=== PATIENT | female | born 1995 | race Caucasian/White ===

== ENCOUNTER 2025-04-03 18:30 | Emergency (ER) | payer BC, SELFPAY ==
--- OUTSIDE RECORDS SUMMARY | 2025-04-03 18:34 | XMS_ITS | Clinical Summary ---
Author Organization [facility] [address] Address [address] [place] [phone] Care Team Providers Care Livestock Rancher Name Role Phone Elizabeth Thayer NP Primary Care Provider [phone]- [phone] Allergies Active Allergy Reactions Criticality Noted Date Comments Amoxicillin Rash Medium 09/02/2005 Medications ondansetron (ZOFRAN) 4 mg tablet TAKE 1 TABLET BY MOUTH EVERY 12 HOURS NEEDED FOR NAUSEA OR VOMITING 5 Active hydroCHLOROthiazid e (HYDRODIURIL) 25 mg tabletIndications: Hypertension, essential Take 1 tablet (25 mg total) by mouth daily 90 tablet 3 5 Active drospirenone, contraceptive, (SLYND) tablet tabletIndications: Contraception Take 1 each (4 mg total) by mouth daily 84 tablet 3 5 Active Active Problems Problem Noted Date Diagnosed Date Wellness examination 01/03/2025 Assessment & Plan (01/03/2025 9:31 AM CDT): Routine health maintenance objectives discussed and orders placed for any outstanding screening studies. Physical exam performed as above. Routine annual labs obtained and will be reviewed with patient when results available. Encouraged regular physical activity--moderate activity for a total of 150 minutes per week over 3-5 days. Encouraged healthy diet with regular fresh fruits and vegetables limited in processed carbohydrates. Alcohol use - socially Nicotine use - never Depression screening - PHQ Screening Over the past 2 weeks, how often have you been bothered by any of the following problems? Little Interest or Pleasure in Doing Things: 0-Not at all Feeling Down, Depressed, or Hopeless: 0-Not at all PHQ-2 Total Score (If total score is 3 or more points, staff should administer the PHQ-9): 0 Orders: CBC with auto differential; Future Comprehensive metabolic panel; Future Lipid panel; Future Morbid obesity with BMI of 45.0-49.9, adult 12/21 Assessment & Plan (01/03/2025 9:31 AM CDT): Discussed the patient's BMI. The BMI is above average. BMI management plan is completed. BMI Follow-up includes: nutrition counseling, exercise counseling and education provided. Encouraged regular physical activity--moderate activity for a total of 150 minutes per week over 3-5 days. Encouraged healthy diet with regular fresh fruits and vegetables limited in processed carbohydrates. Orders: Lipid panel; Future Vitamin D 25 hydroxy; Future Hemoglobin A1c; Future Hypertension, essential 01/03/2025 Assessment & Plan (01/31/2025 9:54 AM CDT): Orders: hydroCHLOROthiazide (HYDRODIURIL) 25 mg tablet; Take 1 tablet (25 mg total) by mouth daily Assessment & Plan (01/03/2025 9:31 AM CDT): Orders: Albumin Creatinine Ratio, Urine; Future hydroCHLOROthiazide (HYDRODIURIL) 25 mg tablet; Take 1 tablet (25 mg total) by mouth daily Encounters Date Type Department Care Team Description 03/07/2025 Results Follow-Up [address] [address] Jethro Pressley NP Pap and HPV, reflex to HPV Genotypes 03/04/2025 8:00 AM CDT Office Visit [facility] at [address] [phone] Jethro Pressley NP Well woman exam (Primary Dx); Screening for STD (sexually transmitted disease); Oral contraceptive pill surveillance 02/03/2025 Results Follow-Up [facility] at [address] [phone] Elizabeth Thayer NP Ferritin, Iron profile w/ IBC 01/31/2025 9:30 AM CDT Office Visit [facility] at [address] [phone] Elizabeth Thayer, SANDY Morbid obesity with BMI of 45.0-49.9, adult (HCC) (Primary Dx); Hypertension, essential 01/29/2025 1:35 PM CDT Lab [address] [address] Microcytosis 01/04/2025 Results Follow-Up [facility] at [address] [phone] Elizabeth Thayer, SANDY Lipid panel, Comprehensive metabolic panel, CBC with auto differential, Additional followed-up results: 7 01/03/2025 9:35 AM CDT Lab [address] [address] Morbid obesity with BMI of 45.0-49.9, adult (HCC); Wellness examination; Need for hepatitis C screening test; Hypertension, essential; Thyroid disorder screening 01/03/2025 9:00 AM CDT Office Visit [facility] at [address] [phone] Elizabeth Thayer, SANDY Morbid obesity with BMI of 45.0-49.9, adult (HCC) (Primary Dx); Wellness examination; Need for hepatitis C screening test; Thyroid disorder screening; Hypertension, essential; Cervical cancer screening from Last 3 Months Immunizations Immunization Administration Dates Next Due DTaP, Unspecified 01/28/1999, 6,1994,06/08,1994 H1N1 Inj 04/29/2009 HPV9 04/16/2019 Hep A, Adult 07/12/2023,01/07/2023 Hep B, Unspecified 1994,1994, 994 HiB 05/26/1995, 5,1994,03/30 Influenza, Quadrivalent, Spl it, Intramuscular 03/07/2023 MMR 01/28/1999,05/26/1995 OPV 01/28/1999, 6,1994,03/30 PPD TEST 01/03/2023 Td, Unspecified 03/17/2009 Tdap 01/03/2023 Varicella 01/07/2023,10/23/1996 Medical History Medical History Date Comments Hypertension Family History Medical History Relation Name Comments Heart attack Maternal Grandfather Hypertension Mother Eileen Thyroid disease Mother Eileen Breast cancer Neg Hx Colon cancer Neg Hx Ovarian cancer Neg Hx Uterine cancer Neg Hx Relation Name Status Comments Father Alive Maternal Grandfather Alive Mother Eileen Alive Social History Tobacco Use Types Packs/Day Years Used Date Smoking Tobacco: Never Passive Smoke Exposure: Never Smokeless Tobacco: Never Alcohol Use Standard Drinks/Week Comments Yes 0 (1 standard drink = 0.6 oz pur e alcohol) PHQ-2 Answer Date Recorded PHQ-2 Total Score (If total score is 3 or more points, staff should administer the PHQ-9) 0 03/04/2025 AUDIT-C Answer Date Recorded Q1: How often do you have a drink containing alc ohol? Monthly or less 01/03/2025 Q2: How many drinks containi ng alcohol do you have on a typical day when you are drinking? 1 or 2 01/03/2025 Q3: How often do you have si x or more drinks on one occasion? Never 01/03/2025 Comments No Sex and Gender Information Value Date Recorded Sex Assigned at Not on file Legal Sex Female 9:37 PM CDT Gender Identity Not on file Sexual Orientation Not on file Obstetrics History Para Term AB IAB SAB Ectopic Multiple Livin g Live Births 0 0 0 0 0 0 0 0 0 0 0 Last Filed Vital Signs Vital Sign Reading Time Taken Comments Blood Pressure 122/86 03/04/2025 8:10 AM CDT Pulse 78 01/31/2025 9:28 AM CDT Temperature 36.4 C (97.5 F) 01/31/2025 9:28 AM CDT Respiratory Rate 16 01/31/2025 9:28 AM CDT Oxygen Saturation 98% 01/31/2025 9:28 AM CDT Inhaled Oxygen Concentration - - Weight 127.5 kg (281 lb) 03/04/2025 8:10 AM CDT Height 165.1 cm (5' 5) 03/04/2025 8:10 AM CDT Body Mass Index 46.76 03/04/2025 8:10 AM CDT Plan of Treatment Health Maintenance Due Date Last Done Comments HPV Vaccines (2 - 3-dose series) 05/14/2019 04/16/2019 Influenza Vaccine (#1) 2025 03/07/2023 Postp oned from 01/21/2025 (Patient declined, but will receive in the future) Covid-19 Vaccine ( season) 2026 07/09/2020, 06/18/2020 Postponed from 01/21/2025 (Patient declined, but will receive in the future) Cervical Cancer Screening 03/04/2026 03/04/2025 Depression Screening 03/04/2026 03/04/2025, 01/04/20 25 Regular Well Visit/Exam 18-64 03/04/2026 03/04/2025, 01/03/2025 DTaP/Tdap/Td Vaccine (7 - Td or Tdap) 01/03/2033 01/03/2023, 03/17/2009, 01/28/1999, Additional history exists Hepatitis B Screening Discontinued 1994 , 1994, 1994 Varicella Vaccines Discontinued 01/07/2023, 10/23/1996 Hepatitis C Screening Completed 01/03/2025 Pneumococcal vaccine <65 Aged Out No longer eligible based on patient's age to complete this topic Procedures Procedure Name Priority Date/Time Associated Diagnosis Comments PAP AND HPV, REFLEX TO HPV GENOTYPES Routine 03/04/2025 8:36 AM CDT Well woman exam N. GONORRHOEAE/C. TRACHOMATIS AMPLIFICATION Routine 03/04/2025 8:36 AM CDT IRON PROFILE W/ IBC Routine 01/29/2025 1 :48 PM CDT Microcytosis FERRITIN Routine 01/29/2025 1:48 PM CDT Microcytosis ALBUMIN CREATININE RATIO, URINE Routine 01/03/2025 12:28 PM CDT Hypertension, essential EGFR Routine 01/03/2025 9:51 AM CDT Wellness examination DIFFERENTIAL AUTO Routine 01/03/2025 9:5 1 AM CDT Wellness examination VITAMIN D 25 HYDROXY Routine 01/03/2025 9:51 AM CDT Morbid obesity with BMI of 45.0-49.9, adult (HCC) THYROID FUNCTION CASCADE Routine 01/03/2025 9:51 AM CDT Thyroid disorder screening HEMOGLOBIN A1C Routine 01/03/2025 9:51 AM CDT Morbid obesity with BMI of 45.0-49.9, adult (HCC) CBC WITH AUTO DIFFERENTIAL Routine 01/03/2025 9:51 AM CDT Wellness examination COMPREHENSIVE METABOLIC PANEL Routine 01/03/2025 9:51 AM CDT Wellness examination LIPID PANEL Routine 01/03/2025 9:51 AM CDT Morbid obesity with BMI of 45.0-49.9, adult (HCC) Wellness examination HEPATITIS C ANTIBODY Routine 01/03/2025 9:51 AM CDT Need for hepatitis C screening test from Last 3 Months Results * Pap and HPV, reflex to HPV Genotypes (03/04/2025 8:36 AM CDT) CLINICAL INFORMATION: [facility] Comment:WELL WOMAN LMP [facility] Comment:02/20/25 Previous Pap [facility] Comment:NONE GIVEN Prev. Bx [facility] Comment:NONE GIVEN SOURCE: [facility] Comment:Cervix, Endocervix Pap, specimen adequacy [facility] Comment: Satisfactory for evaluation. Endocervical/transformation zone component present. HPV interp [facility] Comment: Cytology Results: Negative for intraepithelial lesion or malignancy. COMMENTS [facility] Comment: This Pap test has been evaluated with the ThinPrep(R) Imaging System. Archival Records Clerk [facility] Comment: IVELISSE LOZA(ASCP) CT Screening Location: [place] [address] [address] [place] [address] CLIA: [id number] Slide preparation performed at: [facility], [facility] [place], [address] CLIA: [id number] Comment [facility] Comment: EXPLANATORY NOTE: The Pap is a screening test for cervical cancer. It is not a diagnostic test and is subject to false negative and false positive results. It is most reliable when a satisfactory sample, regularly obtained, is submitted with relevant clinical findings and history, and when the Pap result is evaluated along with historic and current clinical information. Human papillomavirus DNA, High Risk E6/E7 Not Detected NOT DETECTED [facility] Comment: Not Detected High Risk HPV types (16,18,31,33,35,39,45,51,52, 56,58,59,66,68) were not detected. Other HPV types which cause anogenital lesions may be present. The significance of the other types of HPV in malignant processes has not been established. Methodology: Real Time PCR Thin prep-Endocervica l 03/04/2025 8:36 AM CDT 03/05/2025 6:07 PM CDT Jethro Pressley WELDER TECH LAB CYTOLOGY ORDERABLES Final Result [facility] [address] [address] [place] [phone] [facility] [address] [place] [address] * N. gonorrhoeae/C. trachomatis Amplification (03/04/2025 8:36 AM CDT) C. trachomatis RNA NOT DETECTED NOT DETECTED [facility] N. gonorrhoeae RNA NOT DETECTED NOT DETECTED [facility] Comment [facility] Comment: The analytical performance characteristics of this assay, when used to test SurePath(TM) specimens have been determined by [facility]. The modifications have not been cleared or approved by the FDA. This assay has been validated pursuant to the CLIA regulations and is used for clinical purposes. For additional information, please refer to https://education.[employer]rog[employer] Bop/faq/WXD016 (This link is being provided for information/ educational purposes only.) 03/04/2025 8:36 AM CDT 03/05/2025 6:07 PM CDT Jethro Pressley WELDER TECH LAB MICROBIOLOGY - GENE RAL ORDERABLES Final Result Performing Organization Address City/[facility]/ZIP Co de Phone Number [employer] [phone] * (ABNORMAL) Iron profile w/ IBC (01/29/2025 1:48 PM CDT) Iron 44 35 - 145 mcg/dL TIBC 290 250 - 400 mcg/dL [facility] Transferrin saturation 15(L) 20 - 50 % [facility] Blood 01/29/2025 1:48 PM CDT 01/29/2025 6:24 PM CDT Elizabeth Thayer WELDER TECH LAB BLOOD ORDERABLES Final Result Performing Organization Address City/[facility]/ZIP Co de Phone Number [facility] [address] [facility] Department [place] [address] * Ferritin (01/29/2025 1:48 PM CDT) Ferritin 135 13 - 150 ng/mL Blood 01/29/2025 1:48 PM CDT 01/29/2025 6:24 PM CDT Elizabeth Thayer WELDER TECH LAB BLOOD ORDERABLES Final Result Performing Organization Address City/[facility]/ZIP Co de Phone Number [facility] [address] [facility] [place] [address] * Albumin Creatinine Ratio, Urine (01/03/2025 12:28 PM CDT) Albumin Ur 15.7 mg/L Comment: Interpretive Data No reference range established. Current interpretive data was last revised 2018. Creatinine Ur 84.0 mg/dL [facility] Comment: Interpretive Data No reference range established. Current interpretive data was last revised 2018. Albumin Creatinine Ratio, Ur 19 1 - 29 mg/g [facility] Urine 01/03/2025 12:2 8 PM CDT 01/03/2025 2:35 PM CDT us Elizabeth Thayer NP LAB URINE ORDERABLES Final Result [facility] [place] [address] * eGFR (01/03/2025 9:51 AM CDT) eGFR >90 >=60 mL/min/1. 73 m2 Comment: Interpretive Data Reference Interval Normal >/= 90 mL/min/1.73m2 Mildly decreased* 60 - 89 mL/min/1.73m2 Mildly to moderately decreased 45 - 59 mL/min/1.73m2 Moderately to severely decreased 30 - 44 mL/min/1.73m2 Severely decreased 15 - 29 mL/min/1.73m2 Kidney Failure < 15 mL/min/1.73m2 *Relative to young adult level Estimated glomerular filtration rate is determined by the 2020 CKD-EPI equation recommended by the National Kidney Foundation (A Unifying Approach to GFR Estimation: Recommendations of the NKF-ASK Task Force on Reassessing the Inclusion of Race in Diagnosing Kidney Disease, JASN 2020). The CKD-EPI equation should not be used for patients with unstable renal function and has not been validated in children and those over 70. Current interpretive data was last reviewed 2021. Blood 01/03/2025 9:51 AM CDT 01/03/2025 11:19 AM CDT us Elizabeth Thayer WELDER TECH LAB BLOOD ORDERABLES Final Result [facility] [address] [facility] [place] [address] * Differential, auto (01/03/2025 9:51 AM CDT) Neutrophil abs 6.44 1.50 - 6.50 K/cumm Imm gran abs 0.02 0.00 - 0.10 K/cumm [facility] Lymphocyte abs 2.81 0.80 - 3.30 K/cumm [facility] Monocyte abs 0.74 0.20 - 0.80 K/cumm [facility] Eosinophil abs 0.01 0.00 - 0.50 K/cumm [facility] Basophil abs 0.03 0.00 - 0.10 K/cumm [facility] Neutrophil pct 64.0 % [facility] Comment: Interpretive Data Percent cell count reference ranges are not reported, since discordance with absolute values may lead to misinterpretation of CBC data. Current Interpretive Data was last revised on 2017. Imm gran pct 0.2 % [facility] Comment: Interpretive Data Percent cell count reference ranges are not reported, since discordance with absolute values may lead to misinterpretation of CBC data. Current Interpretive Data was last revised on 2017. Lymphocyte pct 28.0 % [facility] Comment: Interpretive Data Percent cell count reference ranges are not reported, since discordance with absolute values may lead to misinterpretation of CBC data. Current Interpretive Data was last revised on 2017. Monocyte pct 7.4 % [facility] Comment: Interpretive Data Percent cell count reference ranges are not reported, since discordance with absolute values may lead to misinterpretation of CBC data. Current Interpretive Data was last revised on 2017. Eosinophil pct 0.1 % [facility] Comment: Interpretive Data Percent cell count reference ranges are not reported, since discordance with absolute values may lead to misinterpretation of CBC data. Current Interpretive Data was last revised on 2017. Basophil pct 0.3 % [facility] Comment: Interpretive Data Percent cell count reference ranges are not reported, since discordance with absolute values may lead to misinterpretation of CBC data. Current Interpretive Data was last revised on 2017. Blood 01/03/2025 9:51 AM CDT 01/03/2025 11:19 AM CDT Elizabeth Thayer WELDER TECH LAB BLOOD ORDERABLES Final Result Performing Organization Address City/[facility] Co de Phone Number [address] [address] * Thyroid Function [place] (01/03/2025 9:51 AM CDT) [facility] TSH 3.74 0.30 - 4.20 mcIUnit/mL Blood 01/03/2025 9:51 AM CDT 01/03/2025 11:19 AM CDT Elizabeth Thayer WELDER TECH LAB BLOOD ORDERABLES Final Result Performing Organization Address [facility] de Phone Number [address] [address] * (ABNORMAL) CBC with auto differential (01/03/2025 9:51 AM CDT) [facility] WBC 10.05(H) 3.80 - 9.90 K/cumm Hgb 12.8 11.9 - 15.5 g/dL [facility] Hct 40.5 35.6 - 45.5 % [facility] Plt 314 150 - 400 K/cumm [facility] MPV 10.1 9.1 - 12.3 fL [facility] RBC 5.22(H) 3.90 - 5.20 M/cumm [facility] MCV 77.6(L) 81.3 - 96.4 fL [facility] MCH 24.5(L) 27.1 - 33.3 pg [facility] MCHC 31.6(L) 32.3 - 35.7 g/dL [facility] RDW CV 13.7 11.1 - 14.9 % [facility] RDW SD 38.3 35.7 - 48.1 fL [facility] NRBC abs 0.00 0.00 - 0.01 K/cumm [facility] Blood 01/03/2025 9:51 AM CDT 01/03/2025 11:19 AM CDT lEizabeth Thayer NP LAB BLOOD ORDERABLES Final Result Performing Organization Address City/[facility]/ZIP Co de Phone Number [facility] [address] [place] [address] * Hepatitis C antibody Blood (01/03/2025 9:51 AM CDT) Pathologist [facility] Hep C Ab Nonreactive Nonreactive Comment: Antibodies to HCV not detected. Does NOT exclude the possibility of recent exposure to HCV. Current interpretive data was last revised on 22 Interpretive Data Nonreactive: Antibodies to HCV not detected. Does NOT exclude the possibility of recent exposure to HCV. Equivocal: Equivocal for HCV antibodies. Supplemental molecular testing will be automatically performed to determine infection status in accordance with current CDC screening recommendations. Reactive: Positive for HCV antibodies. This may represent current or past HCV infection. Supplemental molecular testing will be automatically performed to determine current infection status in accordance with current CDC screening recommendations. Interpretive data was last revised on 2019. Blood 01/03/2025 9:51 AM CDT 01/03/2025 11:19 AM CDT Elizabeth Thayer NP LAB MICROBIOLOGY - GENERAL ORDERABLES Final Result Performing Organization Address [facility] Co de Phone Number [address] [place] [address] * Vitamin D 25 hydroxy (01/03/2025 9:51 AM CDT) [facility] Vitamin D 25-OH 43.0 30.0 - 80.0 ng/mL Blood 01/03/2025 9:51 AM CDT 01/03/2025 11:19 AM CDT Elizabeth Thayer NP LAB BLOOD ORDERABLES Final Result Performing Organization Address City/[facility] Co de Phone Number [facility]MA[address] [place] [address] * Hemoglobin A1c (01/03/2025 9:51 AM CDT) Hgb A1C 5.2 4.0 - 5.6 % Estimated Average Glucose 103 mg/dL [facility] Comment: The ADA recommends reporting an estimated Average Glucose (eAG) with all Hemoglobin A1c results using the equation derived from a study of 507 normal and diabetic adults. Minority populations were underrepresented and children were not included. (Diabetes Care 31:5804-4694, 2008). The eAG is not equivalent to a fasting glucose. Blood 01/03/2025 9:51 AM CDT 01/03/2025 11:19 AM CDT Elizabeth Thayer WELDER TECH LAB BLOOD ORDERABLES Final Result [facility] [address] [facility] [place] [address] * (ABNORMAL) Lipid panel (01/03/2025 9:51 AM CDT) Cholesterol 175 30 - 199 mg/dL Comment: Interpretive Data Ages < or = 19 years Acceptable: <170 mg/dL Borderline high: 170-199 mg/dL High: >or= 200 mg/dL Ages > or = 20 years Desirable: <200 mg/dL Borderline high: 200-239 mg/dL High: >or= 240 mg/dL Literature References: 1. Expert Panel on Integrated Guidelines for Cardiovascular Health and Risk Reduction in Children and Adolescents. Pediatrics 2011;128:S213 2. NCEP Expert Panel. Circulation 2004;110:227 Current Interpretive Data was last revised on 2018. Triglycerides 100 <=149 mg/dL [facility] Comment: Interpretive Data Ages < or = 9 years Acceptable: <75 mg/dL Borderline high: 75-99 mg/dL High: >or= 100 mg/dL Ages 10 to 20 years Acceptable: <90 mg/dL Borderline high: 90-129 mg/dL High: >or= 130 mg/dL Ages > or = 20 years Desirable: <150 mg/dL Borderline high: 150-199 mg/dL High: 200-499 mg/dL Very high: >or= 499 mg/dL Literature References: 1. Expert Panel on Integrated Guidelines for Cardiovascular Health and Risk Reduction in Children and Adolescents. Pediatrics 2011;128:S213 2. NCEP Expert Panel. Circulation 2004;110:227 Current Interpretive Data was last revised on 2018. HDL 27(L) >=40 mg/dL [facility] Comment: Interpretive Data Ages < or = 19 years Acceptable: >45 mg/dL Borderline low: 40-45 mg/dL Low: <40 mg/dL Ages > or = 20 years Desirable: >or= 60 mg/dL Low: <40 mg/dL Literature References: 1. Expert Panel on Integrated Guidelines for Cardiovascular Health and Risk Reduction in Children and Adolescents. Pediatrics 2011;128:S213 2. NCEP Expert Panel. Circulation 2004;110:227 Current Interpretive Data was last revised on 2018. LDL, calculated 129 <=129 mg/dL [facility] Comment: Interpretive Data Ages < or = 19 years Acceptable: <110 mg/dL Borderline high: 110-129 mg/dL High: >or= 130 mg/dL Ages > or = 20 years Optimal: <100 mg/dL Near optimal: 100-129 mg/dL Borderline high: 130-159 mg/dL High: >160 mg/dL Calculated using the Jonnathan LDL-C estimating equation. This equation was implemented on 2024. Prior to this date LDL-C was estimated using the Friedewald equation. Literature References: 1. Expert Panel on Integrated Guidelines for Cardiovascular Health and Risk Reduction in Children and Adolescents. Pediatrics 2011;128:S213 2. NCEP Expert Panel. Circulation 2004;110:227 3. Jonnathan Roberto al. ALISON Cardiol. 2020 September 20;5(5):540-548. doi: 10.1001/jamacardio.2020.0013 Current Interpretive Data was last revised on 2024. Non-HDL Cholesterol 148 mg/dL [facility] Comment: Interpretive Data Ages < or = 19 years Acceptable: <120 mg/dL Borderline high: 120-144 mg/dL High: >145 mg/dL Ages > or = 20 years When triglycerides are >200 mg/dL, Non-HDL cholesterol is a secondary target of therapy with treatment goals that are 30 mg/dL greater than the LDL cholesterol target. Literature References: 1. Expert Panel on Integrated Guidelines for Cardiovascular Health and Risk Reduction in Children and Adolescents. Pediatrics 2011;128:S213 2. NCEP Expert Panel. Circulation 2004;110:227 Current Interpretive Data was last revised on 2018. Chol/HDL ratio 6 [facility] Blood 01/03/2025 9:51 AM CDT 01/03/2025 11:19 AM CDT Narrative [facility] - 01/03/2025 11:57 AM CDT Has the patient been fasting for 8 hours or more?->Yes Elizabeth Thayer NP LAB BLOOD ORDERABLES Final Result [facility] [address] [facility] [place] [address] * Comprehensive metabolic panel (01/03/2025 9:51 AM CDT) Sodium 139 135 - 145 mmol/L Potassium, pl 3.9 3.3 - 4.9 mmol/L [facility] [facility] Chloride 103 97 - 110 mmol/L [facility] CO2 25 22 - 32 mmol/L [facility] Anion gap 11 2 - 15 mmol/L [facility] BUN 14 6 - 25 mg/dL [facility] Creatinine 0.87 0.60 - 1.10 mg/dL [facility] Glucose 100 70 - 199 mg/dL [facility] Comment: Interpretive Data Fasting glucose >/= 126 mg/dl is diagnostic for diabetes. Fasting is defined as no caloric intake for at least 8 hours. Fasting glucose between 100 mg/dl to 125 mg/dl is diagnostic of prediabetes. In a patient with classic symptoms of hyperglycemia or hyperglycemic crisis, a random glucose >/= 200 mg/dl is diagnostic for diabetes. In the absence of unequivocal hyperglycemia, results should be confirmed by repeat testing. The classification and Diagnosis of Diabetes Diabetes Care 2021; 46: S19-S40. Current interpretive data was last revised 2022. Calcium 9.7 8.5 - 10.3 mg/dL [facility] Bilirubin, total 0.6 0.1 - 1.2 mg/dL [facility] Protein, pl 7.5 6.5 - 8.5 g/dL [facility] Albumin 4.4 3.5 - 5.0 g/dL [facility] Alk phos 83 40 - 130 Units/L [facility] 26 7 - 45 Units/L [facility] AST 26 10 - 45 Units/L [facility] Blood 01/03/2025 9:51 AM CDT 01/03/2025 11:19 AM CDT Elizabeth Thayer NP LAB BLOOD ORDERABLES Final Result [facility]OSS [address] [facility] Department [place] [address] from Last 3 Months Insurance [place] Care Teams Livestock Rancher Relationship Specialty Start Date End Date Elizabeth Thayer NP [address] [address] PCP - General Internal Medicine 01/03/25
--- OUTSIDE RECORDS SUMMARY | 2025-04-03 18:34 | XMS_ITS | Encounter Summary ---
Author Organization [facility] Healthcare Address [address] [place] [address] Care Team Providers Care Computer Applications Developer Name Role Phone Elizabeth Thayer NP Primary Care Provider +1- [phone] Encounter Details Date Type Department Care Team (Late st Contact Info) Description 03/07/2025 Results Follow-Up [facility] [address] [place] [address] [address] [place] [address] Jethro Pressley NP [address] [facility] [address] [place] [address] Pap and HPV, reflex to HPV Genotypes Social History Tobacco Use Types Packs/Day Years [...] on file Sexual Orientation Not on file documented as of this encounter Plan of Treatment Not on file documented as of this encounter Visit Diagnoses Not on filedocumented in this encounter Care Teams Computer Applications Developer Relationship Specialty Start Date End Date Elizabeth Thayer NP [address] [facility] [address] [place] [address] PCP - General Internal Medicine 01/03/25 documented as of this encounter
--- OUTSIDE RECORDS SUMMARY | 2025-04-03 18:34 | XMS_ITS | Encounter Summary ---
Author Organization [facility] Healthcare Address [address] [place] [address] Care Team Providers Care Client Experience Consultant Name Role Phone Elizabeth Thayer NP Primary Care Provider +1- [phone] Encounter Details Date Type Department Care Team (Late st Contact Info) Description 02/03/2025 Results Follow-Up [facility] Primary Care at [address] [address] Elizabeth Thayer NP [address] [place] [address] [address] [place] [address] Ferritin, Iron profile w/ IBC Social History Tobacco Use Types Packs/Day Years Used Date Smoking Tobacco: Never Passive Smoke Exposure: Never Smokeless Tobacco: Never Alcohol Use Standard Drinks/Week Comments Yes 0 (1 standard drink = 0.6 oz pur e alcohol) PHQ-2 Answer Date Recorded PHQ-2 Total Score (If total score is 3 or more points, staff should administer the PHQ-9) 0 01/03/2025 AUDIT-C Answer Date Recorded Q1: How often [...] on filedocumented in this encounter Care Teams Client Experience Consultant Relationship Specialty Start Date End Date Elizabeth Thayer NP [address] [facility] [address] [place] [address] PCP - General Internal Medicine 01/03/25 documented as of this encounter
[2025-04-03 18:41] VITALS: BP 138/77; PULSE 100; RESP 18; TEMP 37.4; O2SAT 100
--- NOTE | 2025-04-03 19:17 | ED.SKABFB ---
HPI - Skin/Abscess/Foreign Bdy General Chief complaint: Skin/Abscess/Foreign Body Stated complaint: Rash Time Seen by Provider: 04/03/25 19:00 Source: patient and RN notes reviewed Mode of arrival: ambulatory Limitations: no limitations History of Present Illness HPI narrative: 30-year-old female presents to the [facility] complaining of itchiness for the last 2 weeks. Patient is any rash, fevers, body aches, chills, breathing problems, wheezing, or any symptoms. Patient reports a history of hypertension. She says she only takes hydrochlorothiazide for it. Patient denies any changes in medications, no new detergents, soaps, or any changes in her lifestyle. Patient denies any drug use. Patient has been using Zyrtec and Benadryl help with symptoms with some relief, she has also been using her mother's clobetasol cream without relief. Been trying Aquaphor as well any relief of the itchiness. Related Data Home Medications ?Medication ?Instructions ?Recorded ?Confirmed ?Last Taken ?Type drospirenone (contraceptive) 4 mg 04/03/25 Unknown History (28) tablet (Slynd) hydrochlorothiazide 25 mg tablet mg 04/03/25 Unknown History Allergies Allergy/AdvReac Type Severity Reaction Status Date / Time amoxicillin Allergy Mild Rash Verified 04/03/25 18:52 Review of Systems Review of Systems: CONSTITUTIONAL: Denies fever, chills, or sweats. EYES: Denies visual changes, redness, or discharge. ENT: Denies rhinorrhea, congestion, sore throat, difficulty clearing secretions, or otalgia. CARDIOVASCULAR: Denies chest pain, palpitations, or edema. RESPIRATORY: Denies cough, wheezing cough or dyspnea. GASTROINTESTINAL: Denies abdominal pain, nausea, vomiting, or diarrhea. GENITOURINARY: Denies dysuria or hematuria. SKIN: Denies rash. Positive for itching. MUSCULOSKELETAL: Denies back pain, joint pain, or myalgia. NEUROLOGIC: Denies headache, numbness, or weakness. PSYCHIATRIC: Denies anxiety or depression. All other systems reviewed are negative, except as documented in HPI. PMFSH Comments At the time of my signature, I reviewed and agree with the nursing past medical, surgical, social, and family history. There is no relevant family history pertinent to the patient complaint. Exam Narrative: GENERAL: This is a well-nourished, well-developed adult, in no apparent distress. They are non ill-appearing, nontoxic appearing. HEAD: normocephalic, atraumatic. EYES: Sclera clear/white. Conjunctiva normal. Vision is grossly intact. Extraocular movements intact EARS: External ears normal, Hearing grossly intact. NOSE: External nose normal THROAT: Mucous membranes moist, NECK: Neck supple, non-tender without lymphadenopathy, masses or thyromegaly. CARDIOVASCULAR: Regular rate and rhythm RESPIRATORY: Respiratory rate normal, respiratory effort nonlabored, no respiratory distress SKIN: warm, Dry, intact with no suspicious lesions or rash, good texture and turgor. Dermatographia to left upper arm and chest from scratching. NEURO: awake, alert, and oriented to person, place and time. There were no obvious focal neurologic abnormalities. EXTREMITIES: No joint tenderness, effusion, or edema noted. BACK: Nontender without deformity. No CVA tenderness. Course Course Emergency Course: Portions of this record may have been created with voice recognition software Level of Care: Express Care Visit Vital Signs Vital signs: Vital Signs Temperature 99.4 F 04/03/25 18:41 Pulse Rate 100 04/03/25 18:41 Respiratory Rate 18 04/03/25 18:41 Blood Pressure 138/77 04/03/25 18:41 Pulse Oximetry 100 04/03/25 18:41 Oxygen Delivery Room Air 04/03/25 18:41 Temperature 99.4 F 04/03/25 18:41 Pulse Rate 100 04/03/25 18:41 Respiratory Rate 18 04/03/25 18:41 Blood Pressure 138/77 04/03/25 18:41 Pulse Oximetry 100 04/03/25 18:41 Oxygen Delivery Room Air 04/03/25 18:41 Reviewed MDM - Skin/Abscess/Foreign Bdy MDM Narrative Medical decision making narrative: Unknown cause for pruitius. Well Try short course of prednisone. Discussed supportive care and skin care. Discussed physical exam findings. Advised supportive measures and signs/symptoms to go to the ER. Pt is appropriate for outpt treatment and f/u. Differential Diagnosis Differential diagnosis: Likely urticaria, allergic reaction to drug, eczema, contact dermatitis and other (xerosis, pruritus) Critical Care Time Critical Care Time Critical Care Time: No Discharge Plan Discharge Clinical Impression: Pruritus Patient Disposition: Home Condition: Stable Instructions: Itchy Skin (ED) Additional Instructions: Take the prednisone as directed. Traditional soaps skin damage the natural skin moisture barrier making your vp marketing services and skin can cause more itchiness. Try using Syndet ( synthetic detergent) which are much milder for the skin. Common brands are Dove, cetaphil, Aveeno. uses daily skin moisturizer such as Eucerin then apply a Vaseline or Aquaphor after a shower to help moisturize the skin. avoid excessive or aggressive skin washing, do not showering hot water are, lukewarm water as better for skin, use humidifier to help increase the humidity side the home especially when using the here. Continue taking your Zyrtec to help with itchiness as well. Follow-up PCP in 3-5 days For re-evaluation. Patient Language: Frisian Prescriptions: New prednisone 20 mg tablet 40 mg PO DAILY 5 Days Qty: 10 0RF No Action hydrochlorothiazide 25 mg tablet Slynd 4 mg (28) tablet Follow-up/Referrals: Jeovany,Elizabeth Azevedo APRN [Primary Care Provider, Unknown] Time of Disposition: 19:16
== END 2025-04-03 19:19 | disposition home or self-care (01) ==
PROVIDERS: PCP Nurse Practitioner
DX: L29.9 Pruritus, unspecified (principal); I10 Essential (primary) hypertension; Z79.899 Other long term (current) drug therapy
CPT/HCPCS: 99203; G0463